=== PATIENT | female | born 1935 | race Caucasian/White ===

== ENCOUNTER 2016-08-13 12:47 | Emergency (ER) | payer MEDICARE ==
--- NOTE | 2016-08-13 13:04 | ER Document Report ---
ED Medical Screen (RME) - General Stated Complaint: BLOOD TRANSFUSION Mode of Arrival: Ambulatory Notes: She presents to the emergency department sent over by her primary care provider for possible blood transfusion. Patient reports last couple days she's been short of breath and feeling dizzy. Cardiac disease with 2 stents placed. Reports just found out hx of anemia. I have greeted and performed a rapid initial assessment of this patient. A comprehensive ED assessment and evaluation of the patient, analysis of test results and completion of the medical decision making process will be conducted by additional ED providers. TRAVEL OUTSIDE OF THE [place] IN LAST 30 DAYS: No - Related Data Allergies/Adverse Reactions: shellfish derived Allergy (Verified 08/13/16 13:02) Past Medical History GI Medical History: Reports: Hx Ulcer - Immunizations Hx Diphtheria, Pertussis, Tetanus Vaccination: No
[2016-08-13 13:40] LABS: ABSOLUTE BASOPHILS # (AUTO) 0.1 10^3/uL (0.0-0.2); ABSOLUTE EOSINOPHILS # (AUTO) 0.2 10^3/uL (0.0-0.6); ABSOLUTE LYMPHOCYTES (AUTO) 1.5 10^3/uL (0.5-4.7); ABSOLUTE MONOCYTES (AUTO) 0.7 10^3/uL (0.1-1.4); ABSOLUTE NEUT (AUTO) 4.4 10^3/uL (1.7-8.2); EOSINOPHILS % (AUTO) 2.8 % (0-6); HEMATOCRIT 26.2 % (36.0-47.0); LYMPHOCYTES % (AUTO) 21.4 % (13-45); MEAN CORPUSCULAR HEMOGLOBIN 18.2 pg (27.0-33.4); MEAN CORPUSCULAR VOLUME 65 fl (80-97); MONOCYTES % (AUTO) 10.4 % (3-13); RED BLOOD COUNT 4.04 10^6/uL (3.72-5.28); RED CELL DISTRIBUTION WIDTH 20.1 % (11.5-14.0); SEGMENTED NEUTROPHILS % (AUTO) 64.4 % (42-78); WHITE BLOOD COUNT 6.9 10^3/uL (4.0-10.5)
[2016-08-13 13:46] LABS: HEMOGLOBIN 7.3 g/dL (12.0-15.5); HGB HCT DIFFERENCE -4.3
[2016-08-13] MEDS ORDERED: NORMAL SALINE 250 ML IV PRN (13:52)
--- NOTE | 2016-08-13 13:53 | ER Document Report ---
ED General - General Chief Complaint: Abnormal Lab Results Stated Complaint: BLOOD TRANSFUSION Mode of Arrival: Ambulatory Information source: Patient Notes: 81 yr old female chronic anemia presents with concerns of requesting transfiusion per her pcp. pt admits to dizziness, denies any black stools or any other concerns TRAVEL OUTSIDE OF THE [place] IN LAST 30 DAYS: No - Related Data Allergies/Adverse Reactions: shellfish derived Allergy (Verified 08/13/16 13:02) Past Medical History - Social History Smoking Status: Never Smoker Chew tobacco use (# tins/day): No Frequency of alcohol use: None Drug Abuse: None Family History: Other - Father in his sleep at age 75, mother at 25 from complications of an appendectomy, and her grandparents both lived into their 80s to 90s. Patient has suicidal ideation: No Patient has homicidal ideation: No Renal/ Medical History: Denies: Hx Peritoneal Dialysis GI Medical History: Reports: Hx Ulcer - Immunizations Hx Diphtheria, Pertussis, Tetanus Vaccination: No Physical Exam - Vital signs Vitals: Pulse Resp BP Pulse Ox 68 16 112/97 H 96 08/13/16 14:25 08/13/16 14:25 08/13/16 14:25 08/13/16 14:25 Course - Re-evaluation Re-evalutation: 08/13/16 14:35 Patient is quite insistent that no other evaluation be performed, she states that she understands risks and benefits wishes to just receive the blood transfusion and go right home. She refuses a Hemoccult I will abide at the patient's request After performing a Medical Screening Examination, I estimate there is LOW risk for ACUTE CORONARY SYNDROME, RESPIRATORY FAILURE, SEPSIS OR MENINGITIS, thus I consider the discharge disposition reasonable. The patient and I have discussed the diagnosis and risks, and we agree with discharging home with close follow- up. We also discussed returning to the Emergency Department immediately if new or worsening symptoms occur. We have discussed the symptoms which are most concerning (e.g., changing or worsening pain, trouble swallowing or breathing, neck stiffness, fever) that necessitate immediate return. - Vital Signs Vital signs: Temp Pulse Resp BP Pulse Ox 68 16 112/97 H 96 08/13/16 14:25 08/13/16 14:25 08/13/16 14:25 08/13/16 14:25 - Laboratory Result Diagrams: 08/13/16 13:15 08/13/16 13:15 Laboratory results interpreted by me: 08/13/16 08/13/16 08/13/16 13:15 13:15 13:15 Hgb 7.3 L Hct 26.2 L MCV 65 L MCH 18.2 L MCHC 28.0 L RDW 20.1 H BUN 22 H Alkaline Phosphatase 179 H Crossmatch See Detail Discharge - Discharge Clinical Impression: Anemia requiring transfusions Condition: Stable Disposition: HOME, SELF-CARE Instructions: Anemia ([facility]) Additional Instructions: Please follow-up with your primary care physician for reevaluation, return immediately if there are any other concerns
[2016-08-13 13:55] LABS: ALANINE AMINOTRANSFERASE 20 U/L (9-52); ALBUMIN 4.3 g/dL (3.5-5.0); ALKALINE PHOSPHATASE 179 U/L (38-126); ANION GAP 11 (5-19); ASPARTATE AMINO TRANSFERASE 34 U/L (14-36); BILIRUBIN,TOTAL 0.7 mg/dL (0.2-1.3); BLOOD UREA NITROGEN 22 mg/dL (7-20); CALCIUM 9.7 mg/dL (8.4-10.2); CARBON DIOXIDE 28 mmol/L (22-30); CHLORIDE 104 mmol/L (98-107); GLUCOSE 95 mg/dL (75-110); POTASSIUM 4.8 mmol/L (3.6-5.0); SODIUM 143.1 mmol/L (137-145); TOTAL PROTEIN 7.7 g/dL (6.3-8.2)
[2016-08-13 14:23] LABS: TOXIC GRANULATION SLIGHT
[2016-08-13 14:24] LABS: ANISOCYTOSIS 2+; HYPOCHROMASIA 2+; MICROCYTOSIS 3+; OVALOCYTES SLIGHT; POIKILOCYTOSIS SLIGHT; POLYCHROMASIA SLIGHT
[2016-08-13 19:12] VITALS: BP 173/83
--- NOTE | 2016-08-13 19:24 | EKG REPORT ---
SEVERITY:- ABNORMAL ECG - SINUS RHYTHM RIGHT BUNDLE BRANCH BLOCK : Confirmed by: Cathi Carver MD 13-Aug-2016 19:23:17
== END 2016-08-13 19:12 | disposition home or self-care (01) ==
LOC: ER 12:47
DX: D64.9 Anemia, unspecified (principal); R42 Dizziness and giddiness
CPT/HCPCS: 93005; 99284; 86900; 86901; 36415; 36430; 86850; 85025; 80053; 86920; 93010; P9016